=== PATIENT | female | born 1995 | race African-American/Black ===

== ENCOUNTER 2021-01-28 13:07 | Emergency (ER) | payer MEDICAID ==
[~2021-01-28] VITALS: Ht 165.1 cm; Wt 107.0 kg
[2021-01-28 13:38] VITALS: BP 119/71
== END 2021-01-28 14:34 | disposition home or self-care (01) ==
LOC: ER 13:07
DX: K08.89 Other specified disorders of teeth and supporting structures (principal); F17.210 Nicotine dependence, cigarettes, uncomplicated; Z71.6 Tobacco abuse counseling
CPT/HCPCS: 99281; 99406